=== PATIENT | female | born 1965 | race Caucasian/White ===

== ENCOUNTER → 2016-11-17 | Outpatient (CLI) | payer BC ==
--- NOTE | 2016-11-18 12:49 | MAMMOGRAPHY REPORT ---
BILATERAL DIGITAL SCREENING MAMMOGRAM TOMOSYNTHESIS WITH CAD: 11/17/2016 CLINICAL HISTORY: Routine screening. Patient has no complaints. TECHNIQUE: Breast tomosynthesis in addition to standard 2D mammography was performed. Current study was also evaluated with a Computer Aided Detection (CAD) system. COMPARISON: Comparison is made to exams dated: 10/18/2015 mammogram, 10/09/2014 mammogram, 10/04/2013 m ammogram, 07/22/2012 mammogram, 07/15/2011 mammogram, and 08/01/2009 mammogram - [facility] enter. BREAST COMPOSITION: The tissue of both breasts is heterogeneously dense, which may obscure small ma sses. FINDINGS: Circumscribed masses in the upper inner, upper outer right breast and superior left breast are stable in size compared to last years mammogram. There has been fluctuating nodularity compare d to more remote mammograms, most likely representing fluctuating cysts. No suspicious spiculated o r irregular mass, architectural distortion or cluster of suspicious microcalcifications is seen. IMPRESSION: ACR BI-RADS CATEGORY 1: NEGATIVE There is no mammographic evidence of malignancy. A 1 year screening mammogram is recommended. The p atient will receive written notification of the results. Approximately 10% of breast cancers are not detected with mammography. A negative mammographic repor t should not delay biopsy if a clinically suggestive mass is present. Rebekah Covarrubias M.D. ay/:11/17/2016 21:31:37 Credentialing Specialist: Sandy Sagastume RT(R)(M), [facility] letter sent: Normal 1/2 BI-RADS Code: ACR BI-RADS Category 1: Negative
== END | disposition home or self-care (01) ==
LOC: C.MAMM 11:04
PROVIDERS: ATTEND Obstetrics & Gynecology
DX: Z12.31 Encounter for screening mammogram for malignant neoplasm of breast (principal)

== ENCOUNTER → 2017-05-28 | Outpatient (CLI) | payer BC ==
--- NOTE | 2017-05-29 15:38 | MAMMOGRAPHY REPORT ---
UNILATERAL RIGHT DIGITAL DIAGNOSTIC MAMMOGRAM TOMOSYNTHESIS WITH CAD AND TARGETED RIGHT ULTRASOUND: 1 07/28/2016 CLINICAL HISTORY: The patient reports right breast tenderness for approximately one month, with a few lumps noted in the region of tenderness during a self-breast exam. The patient has a history of a p rior benign right breast excision, and she describes a pulling sensation in the region of her scar as well as a possible lump. TECHNIQUE: Breast tomosynthesis in addition to standard 2D mammography was performed. Current study was also evaluated with a Computer Aided Detection (CAD) system. Right CC and MLO 2-D and tomosynthe sis images were obtained. COMPARISON: Comparison is made to exams dated: 11/17/2016 mammogram, 10/18/2015 mammogram, 10/09/2014 ron mogram, 10/04/2013 mammogram, 07/22/2012 mammogram, and 07/15/2011 mammogram - [facility]. BREAST COMPOSITION: The tissue of the right breast is heterogeneously dense, which may obscure small masses. FINDINGS: Multiple triangle markers cindy the site of palpable lumps in the right superior breast. T here are no suspicious masses, calcifications, or areas of architectural distortion noted in the righ t breast. There has been no significant interval change mammographic the compared to prior exams. A linear scar marker denotes a scar on the right upper outer breast. A circumscribed 11 mm benign-verona earing mass in the right upper inner quadrant is stable compared to multiple prior exams including e 2013 and 2009 exams. Targeted ultrasound was performed of the areas of the palpable lumps pointed out by the patient, in t he right breast at 1:00 approximately 3-4 cm from the nipple. In the right breast at 1:00, 4 cm from the nipple, there is an oval circumscribed hypoechoic solid appearing parallel mass which measures 1 0 x 10 x 4 mm. This corresponds with a circumscribed mammographic mass which has been stable compare d to multiple prior exams, and is therefore likely benign and probably represents a fibroadenoma. Targeted ultrasound was performed of the site of another palpable lump in the right breast at 12:00, approximately 3-4 cm from the nipple. In the right breast at 12:00, approximately 3 cm from the nipp le, there is a small oval circumscribed hypoechoic benign-appearing 3 x 2 mm mass which is likely inc identally noted and likely does not correlate with the palpable finding. Targeted ultrasound was per formed of the site of another palpable lump adjacent to the patient's surgical scar in the right titus st at 10:00 approximately 4 cm from the nipple. In this region there is an oval circumscribed hypoec hoic cystic-appearing 6 x 6 mm mass, which is probably benign and likely represents a cyst and is fel t to be incidentally noted and likely does not correspond with the palpable finding. Targeted ultras ound was performed of the site of another palpable lump in the right breast at 11:00 approximately 6 cm from the nipple. No suspicious masses or other suspicious sonographic abnormalities are noted in these regions. IMPRESSION: ACR-BI-RADS CATEGORY 3: PROBABLY BENIGN, TARGETED ULTRASOUND ACR-BI-RADS CATEGORY 3: PRO BABLY BENIGN Three circumscribed benign-appearing masses in the right breast at 1:00, 12:00, and 10:00 on ultras[address] nd, which are in the region of palpable lumps pointed out by the patient. The right 1:00 breast mass is stable mammographically compared to multiple prior exams and is probably benign and likely repres ents a fibroadenoma. The right 12 and 10:00 masses are felt to be incidentally noted and likely do n ot correspond with the palpable findings, and are probably benign. Recommend bilateral diagnostic to mosynthesis mammograms and targeted ultrasound in 6 months, to reevaluate the right breast masses and for routine mammography of the left breast. Also recommend clinical follow-up for right breast pain /lumps. The patient has been verbally notified of the results. Approximately 10% of breast cancers are not detected with mammography. A negative mammographic report should not delay biopsy if a clinically suggestive mass is present. Elida Hutchinson M.D. ah/:05/28/2017 15:40:46 Risk Compliance Analyst: Sandy RABAGO(Diana)(M), [facility] letter sent: Follow Up Recommended 3 BI-RADS Code: ACR-BI-RADS Category 3: Probably Benign Ultrasound BI-RADS: ACR-BI-RADS Category 3: Pr obably Benign
== END | disposition home or self-care (01) ==
LOC: C.MAMM 11:31
PROVIDERS: ATTEND Physician Assistant
DX: N63.10 Unspecified lump in the right breast, unspecified quadrant (principal)

== ENCOUNTER 2020-07-31 21:26 | Inpatient (IN) ==
[2020-07-31] MEDS ORDERED: ACETAMINOPHEN 1,000 MG/100 ML VIAL IV STA (21:55)
[2020-07-31] MEDS ORDERED: SODIUM CHLORIDE 0.9% 1000ML 1,000 ML IV ONE (21:55)
[2020-07-31] MEDS ORDERED: ONDANSETRON INJ 2 MG/ML 2 ML VIAL IV STA (21:55)
[2020-07-31] MEDS ORDERED: fentaNYL citrate 100 MCG/2 ML VIAL IV STA (21:55)
[2020-07-31 22:07] LABS: Appearance Urine Clear (Clear); Bacteria Urine Automated Negative (Negative); Bilirubin Urine Negative (Negative); Blood Urine 3+ (Negative); Color Urine Yellow; Glucose Urine UA Negative (Negative); Ketones Urine Negative (Negative); Leukocyte Esterase Urine Trace (Negative); Nitrite Urine Negative (Negative); Protein Urine Trace (Negative); RBC Urine Automated >30 /hpf (0-4); Specific Gravity Urine 1.017 (1.000-1.030); Urobilinogen Urine Negative (Negative)
--- NOTE | 2020-07-31 22:11 | Emergency Department Note ---
History of Present Illness General Chief complaint: Abdominal Pain Stated complaint: LEFT SIDE ABD PAIN & BACK PAIN Time Seen by Provider: 07/31/20 21:36 Source: patient Mode of arrival: ambulatory Limitations: no limitations History of Present Illness Provider complaint: Back pain, left flank pain Onset (ago): day(s) 5 Location: back and abdomen Radiation: abdomen Severity: moderate Pain Consistency: + constant and + colicky Maximum Pain Intensity: 7 Current Pain Intensity: 7 Quality: + aching Relieved By: + none Exacerbated By: + movement Associated symptoms: + loss of appetite and + nausea/vomiting; no chest pain, no shortness of breath and no syncope Treatments prior to arrival: none This is a 55-year-old female who presents the emergency department complaining of persistent low back pain and left flank pain. Patient states she began having deep aching and cramping in her back bilaterally last . States at that time she was taking [id number] meds. States it feels better standing instead of laying. States that time the pain seems worse and when it becomes severe she gets nauseated however she has not been vomiting. Patient denies accompanying fevers or chills. Patient denies any recent trauma or change in activity, no history of back surgeries or procedures. Patient does have a history of diverticulitis and is uncertain if her symptoms are related to that. No recent change in her bowel movements. Patient states over the last several days the pain has also felt to be wrapping around her left side and to her left lower abdomen. Patient denies any history of kidney stones in her or family members. Patient states she did have an episode last week where she thought she may have seen blood in her urine but due to finding a new lump in her vaginal region she went and saw her CUSTOMER RESOURCE SPECIALIST. She states she was started on antibiotics for an infected hair follicle and possible concurrent UTI. Patient denies any other symptoms and states she never had anything that felt like her prior urinary tract infections. Pt seen during a time of high acuity and national emergency pandemic while wearing PPE. Home Medications Medication Instructions Recorded Confirmed Type buspirone 10 mg PO QAM 02/17/20 07/31/20 History cholecalciferol (vitamin D3) 1,000 unit PO DAILY 02/17/20 07/31/20 History [Vitamin D3] multivitamin 1 tab PO DAILY 02/17/20 07/31/20 History albuterol sulfate 2 puff INHALATION QID PRN 07/31/20 07/31/20 History bupropion HCl 150 mg PO Q24H 07/31/20 07/31/20 History cefdinir 300 mg PO BID 10 Days #20 cap 08/01/20 Rx tamsulosin 0.4 mg PO QAM 21 Days #21 cap 08/01/20 Rx Allergies Allergy/AdvReac Type Severity Reaction Status Date / Time Penicillins Allergy Unknown Hives Verified 07/31/20 22:45 Sulfa (Sulfonamide Allergy Unknown Hives Verified 07/31/20 22:45 Antibiotics) Past Med/Surg History Medical History (Updated 08/02/20 @ 00:05 by Dc Bailey) Asthma Back pain Depression Encounter for routine gynecological examination Gastric reflux Hematuria Left flank pain Lichen sclerosus et atrophicus Biopsy in 2011 proven Menopausal vaginal dryness Multiple pulmonary nodules Solitary thyroid nodule Surgical History S/P breast lumpectomy S/P surgery on nasal septum deviation repair S/P thyroid surgery excision of nodule Family History Family/Other Diabetes Irregular heart rhythm Mother , in 50's Ovarian cancer dx in early 30's with ovarian cancer CVD (cardiovascular disease) Denies family history of Breast cancer Colorectal cancer Malignant neoplasm of uterus Social History Smoking Status: Never smoker Age Started Using Tobacco: 19; Age Quit Using Tobacco: 21; Hx Alcohol Use: No Hx Substance Use: No Preferred Language: Irish Communication Ability: Effective Dock Pumper Required: No Beliefs That Will Affect Care: None marital status: Current Living Situation: Spouse Feels Safe at Home: Yes Physical Activity Frequency Comment: regularly Assistive Devices: None Review of Systems See HPI for pertinent positives & negatives. and A total of 10 systems reviewed and were otherwise negative Physical Exam Vital Signs Vital Signs - 24 hr 07/31/20 21:27 07/31/20 22:10 07/31/20 22:38 Temperature 36.5 C Temperature Source Temporal Artery Scan Pulse Rate 74 Pulse Rate [Bilateral Apical] 62 82 Respiratory Rate 18 18 20 Respiratory Effort / Characteristics Non-Labored Spontaneous Respiratory Depth Normal Respiratory Pattern Regular Blood Pressure 147/78 H Blood Pressure [Left Arm] 133/80 117/67 Blood Pressure Mean 101 Blood Pressure Mean [Left Arm] 97 83 Blood Pressure Position Sitting Pulse Oximetry 100 100 100 Oxygen Delivery Method Room Air Room Air Room Air Sepsis Recent Fever Within 48 Hours No Sepsis New/Unexplained Change in Mental Status No Sepsis Action Taken by Nursing No Action Required 07/31/20 23:10 07/31/20 23:41 Temperature Temperature Source Pulse Rate Pulse Rate [Bilateral Apical] 81 93 H Respiratory Rate 20 20 Respiratory Effort / Characteristics Respiratory Depth Respiratory Pattern Blood Pressure Blood Pressure [Left Arm] 121/73 114/70 Blood Pressure Mean Blood Pressure Mean [Left Arm] 89 84 Blood Pressure Position Pulse Oximetry 99 98 Oxygen Delivery Method Room Air Room Air Sepsis Recent Fever Within 48 Hours Sepsis New/Unexplained Change in Mental Status Sepsis Action Taken by Nursing GENERAL: alert, uncomfortable appearing, well nourished, no distress, non-toxic EYE EXAM: normal conjunctiva, PERRL and EOM's grossly intact OROPHARYNX: no exudate, no erythema, lips, buccal mucosa, and tongue normal and mucous membranes are moist NECK: supple, no nuchal rigidity, no adenopathy, non-tender LUNGS: Clear to auscultation. Normal chest wall mechanics, no w/r/r HEART: no murmurs, S1 normal and S2 normal ABDOMEN: abdomen soft, non-tender, normo-active bowel sounds, no masses, no rebound or guarding. BACK: Back is symmetrical on inspection and there is no deformity, no midline tenderness, no CVA tenderness. Discomfort with palpation along the left flank. SKIN: no rashes and no bruising UPPER EXTREMITIES: upper extremities are grossly normal. FROM, nml pulses b/l. LOWER EXTREMITIES: No pitting edema. FROM, nml pulses b/l. NEURO EXAM: Normal sensorium, cranial nerves II-XII grossly intact, normal speech, no gross weakness of arms, no gross weakness of legs. Gross sensation intact. Course Course 230: Pt updated on results. Pain returning. 233: Discussed with Dr. Ley. 2345: Updated patient at bedside. Pt still having pain. Administered Medications Discontinued Medications Diatrizoate Meglumine (Diatrizoate Meglumine 30% 100ml Vial) 1 ml INSTIL ONCE ONE Stop: 08/01/20 11:42 Last Admin: 08/01/20 11:48 Dose: 5 ml Documented by: [id number] Fentanyl Citrate (Fentanyl Citrate 100 Mcg/2 Ml Vial) 50 mcg IV NOW STA Stop: 07/31/20 21:56 Last Admin: 07/31/20 22:06 Dose: 50 mcg Documented by: [id number] Fentanyl Citrate (Fentanyl Citrate 100 Mcg/2 Ml Vial) 50 mcg IV Q15M PRN PRN Reason: Pain Stop: 08/14/20 23:21 Last Admin: 07/31/20 23:39 Dose: 50 mcg Documented by: [id number] Sodium Chloride (Nss 1000ml) 1,000 mls @ 999 mls/hr IV .Q1H1M ONE Stop: 07/31/20 22:55 Last Infusion: 07/31/20 23:31 Dose: 0 mls/hr Documented by: [id number] Admin: 07/31/20 22:06 Dose: 999 mls/hr Documented by: [id number] Acetaminophen (Ofirmev) 1,000 mg in 100 mls @ 400 mls/hr IV NOW STA Stop: 07/31/20 22:09 Last Infusion: 07/31/20 22:27 Dose: 0 mls/hr Documented by: [id number] Admin: 07/31/20 22:06 Dose: 400 mls/hr Documented by: [id number] Ceftriaxone Sodium 1,000 mg/ (Dextrose) 50 mls @ 100 mls/hr IV Q24H [facility]; Protocol Stop: 08/06/20 02:59 Last Infusion: 08/01/20 03:51 Dose: 0 mls/hr Documented by: [id number] Admin: 08/01/20 03:21 Dose: 100 mls/hr Documented by: [id number] Sodium Chloride (Nss 1000ml) 1,000 mls @ 125 mls/hr IV .Q8H [facility] Stop: 08/01/20 10:44 Last Infusion: 08/01/20 13:08 Dose: 0 mls/hr Documented by: [id number] Infusion: 08/01/20 09:40 Dose: 0 mls/hr Documented by: [id number] Admin: 08/01/20 03:20 Dose: 125 mls/hr Documented by: [id number] Ketorolac Tromethamine (Ketorolac Tromethamine 15 Mg/Ml Vial) 10 mg IV NOW ONE Stop: 07/31/20 23:57 Last Admin: 08/01/20 00:01 Dose: 10 mg Documented by: [id number] Ondansetron HCl (Ondansetron Inj 2 Mg/Ml 2 Ml Vial) 4 mg IV NOW STA Stop: 07/31/20 21:56 Last Admin: 07/31/20 22:06 Dose: 4 mg Documented by: [id number] Tamsulosin HCl (Tamsulosin Hcl 0.4 Mg Cap) [facility] [place] [place] Stop: 08/31/20 08:59 Last Admin: 08/01/20 10:04 Dose: 0.4 mg Documented by: [id number] Medical Decision Making Differential Diagnosis Differential diagnosis: Etiologies such as shingles, pyelonephritis/UTI, renal colic, appendicitis, diverticulitis, mesenteric ischemia, torsion, aortic pathology, infections, inflammatory bowel disease, bowel obstruction, PUD, biliary pathology, as well as others were entertained. Medical Records Attestation: I reviewed the patient's medical records. Home Medications Current Medication List: was personally reviewed by me Laboratory Data Attestation: I reviewed the patient's lab results. Result diagrams: 07/31/20 21:40 07/31/20 21:40 Lab Results 07/31/20 07/31/20 07/31/20 Range/Units 21:40 21:40 21:40 WBC 7.65 (4.8-10.8) K/uL RBC 4.51 (4.2-5.4) M/uL Hgb 13.9 (12.0-16.0) g/dL Hct 40.2 (37-47) % MCV 89.1 (80-100) fL MCH 30.8 (25-34) pg MCHC 34.6 (32-36) g/dL RDW Std Deviation 41.2 (36.4-46.3) fL RDW Coeff of [place] 12.7 (11.5-14.5) % Plt Count 238 (130-400) K/uL MPV 10.2 (7.4-10.4) fL Immature Gran % (Auto) 0.1 % Neut % (Auto) 58.3 % Lymph % (Auto) 29.9 % [place] % (Auto) 9.8 % Eos % (Auto) 1.6 % Baso % (Auto) 0.3 % Neut # (Auto) 4.46 (1.4-6.5) K/uL Lymph # (Auto) 2.29 (1.2-3.4) K/uL [place] # (Auto) 0.75 H (0.11-0.59) K/uL Eos # (Auto) 0.12 (0-0.5) K/uL Baso # (Auto) 0.02 (0-0.2) K/uL Immature Gran # (Auto) 0.01 (0.00-0.02) K/uL Sodium 142 (136-145) mmol/L Potassium 3.8 (3.5-5.1) mmol/L Chloride 107 (98-107) mmol/L Carbon Dioxide 31 (21-32) mmol/L Anion Gap 3.0 (3-11) BUN 16 (7-18) mg/dl Creatinine 0.98 (0.6-1.2) mg/dl Est Cr Clr Drug Dosing 71.0 ml/min Est GFR ( Amer) 75.8 Est GFR (Non-Af Amer) 65.4 BUN/Creatinine Ratio 16.5 (10-20) Glucose 108 H (70-99) mg/dl Calcium 8.9 (8.5-10.1) mg/dl Magnesium 1.9 (1.8-2.4) mg/dl Total Bilirubin 0.4 (0.2-1) mg/dl AST 16 (15-37) U/L ALT 22 (12-78) U/L Alkaline Phosphatase 68 (45-117) U/L Troponin I < 0.015 (0-0.045) ng/ml Total Protein 6.9 (6.4-8.2) gm/dl Albumin 3.7 (3.4-5.0) gm/dl Globulin 3.2 (2.5-4.0) gm/dl Albumin/Globulin Ratio 1.2 (0.9-2) Lipase 177 (73-393) U/L Urine Color Yellow Urine Appearance Clear (Clear) Urine pH 7.0 (4.5-7.5) Ur Specific [place] 1.017 (1.000-1.030) Urine Protein Trace H (Negative) Urine Glucose (UA) Negative (Negative) Urine Ketones Negative (Negative) Urine Blood 3+ H (Negative) Urine Nitrite Negative (Negative) Urine Bilirubin Negative (Negative) Urine Urobilinogen Negative (Negative) Ur Leukocyte Esterase Trace H (Negative) Urine WBC (Auto) 5-10 H (0-5) /hpf Urine RBC (Auto) >30 H (0-4) /hpf U Hyaline Cast (Auto) 1-5 (0-5) /lpf U Epithel Cells (Auto) 5-10 H (0-5) /lpf Urine Bacteria (Auto) Negative (Negative) COVID-19 Eval Order SARS-CoV-2, RNA, NAAT (NEGATIVE) 08/01/20 08/01/20 Range/Units 01:03 01:03 WBC (4.8-10.8) K/uL RBC (4.2-5.4) M/uL Hgb (12.0-16.0) g/dL Hct (37-47) % MCV (80-100) fL MCH (25-34) pg MCHC (32-36) g/dL RDW Std Deviation (36.4-46.3) fL RDW Coeff of [place] (11.5-14.5) % Plt Count (130-400) K/uL MPV (7.4-10.4) fL Immature Gran % (Auto) % Neut % (Auto) % Lymph % (Auto) % [place] % (Auto) % Eos % (Auto) % Baso % (Auto) % Neut # (Auto) (1.4-6.5) K/uL Lymph # (Auto) (1.2-3.4) K/uL [place] # (Auto) (0.11-0.59) K/uL Eos # (Auto) (0-0.5) K/uL Baso # (Auto) (0-0.2) K/uL Immature Gran # (Auto) (0.00-0.02) K/uL Sodium (136-145) mmol/L Potassium (3.5-5.1) mmol/L Chloride (98-107) mmol/L Carbon Dioxide (21-32) mmol/L Anion Gap (3-11) BUN (7-18) mg/dl Creatinine (0.6-1.2) mg/dl Est Cr Clr Drug Dosing ml/min Est GFR ( Amer) Est GFR (Non-Af Amer) BUN/Creatinine Ratio (10-20) Glucose (70-99) mg/dl Calcium (8.5-10.1) mg/dl Magnesium (1.8-2.4) mg/dl Total Bilirubin (0.2-1) mg/dl AST (15-37) U/L ALT (12-78) U/L Alkaline Phosphatase (45-117) U/L Troponin I (0-0.045) ng/ml Total Protein (6.4-8.2) gm/dl Albumin (3.4-5.0) gm/dl Globulin (2.5-4.0) gm/dl Albumin/Globulin Ratio (0.9-2) Lipase (73-393) U/L Urine Color Urine Appearance (Clear) Urine pH (4.5-7.5) Ur Specific [place] (1.000-1.030) Urine Protein (Negative) Urine Glucose (UA) (Negative) Urine Ketones (Negative) Urine Blood (Negative) Urine Nitrite (Negative) Urine Bilirubin (Negative) Urine Urobilinogen (Negative) Ur Leukocyte Esterase (Negative) Urine WBC (Auto) (0-5) /hpf Urine RBC (Auto) (0-4) /hpf U Hyaline Cast (Auto) (0-5) /lpf U Epithel Cells (Auto) (0-5) /lpf Urine Bacteria (Auto) (Negative) COVID-19 Eval Order Covid19 [facility] SARS-CoV-2, RNA, NAAT NEGATIVE (NEGATIVE) Imaging Data Radiologist's Impression: CT abdomen and pelvis without contrast: 5 x 9 mm stone in the left distal ureter with moderate obstructive changes. Bilateral nephrolithiasis. Colonic diverticula without diverticulitis. Radiologist: Jovan Wilkinson M.D. ECG Data Attestation: I personally reviewed and interpreted this ECG as follows: Indication: + abdominal pain Rate (beats per minute): 77 Rhythm: + normal sinus ECG Intervals/blocks: + Normal QRS and + Normal QT ECG [place]: + Normal ECG ST segments: + Normal ST segments MDM Narrative Pt presents with nearly 1 week of back/flank pain. Labs reassuring, however CT with large stone in left ureter. Due to persistent pain and concern for ability to secure timely followup, discussed options for disposition. I did discuss the case with urology given size of stone and need for close f/u. Case discussed with hospitalist due to persistent pain. Pt afebrile, normal renal function. P t aware of all results and in agreement with the plan. An order was placed for continuous cardiac monitoring. The monitor shows a rate of _72__ with _normal sinus rhythm. Impression & Plan Left flank pain, Back pain, Ureterolithiasis, Hematuria Discharge Plan Visit Data Chief Complaint: Abdominal Pain Stated Complaint: LEFT SIDE ABD PAIN & BACK PAIN ED Provider: Kellie Smith Discharge Problem: Left flank pain, Back pain, Ureterolithiasis, Hematuria Patient Disposition: Admitted As Inpatient Discharge Instructions Interventions: ED Discharge Assessment Last Done: 08/01/20 02:09
[2020-07-31 22:14] LABS: Basophils # (auto) 0.02 K/uL (0-0.2); Basophils % (auto) 0.3 %; Eosinophils # (auto) 0.12 K/uL (0-0.5); Eosinophils % (auto) 1.6 %; Hematocrit (blood only) 40.2 % (37-47); Hemoglobin 13.9 g/dL (12.0-16.0); Immature Granulocytes # (auto) 0.01 K/uL (0.00-0.02); Immature Granulocytes % (auto) 0.1 %; Lymphocytes # (auto) 2.29 K/uL (1.2-3.4); Lymphocytes % (auto) 29.9 %; Mean Corpuscular Hemoglobin 30.8 pg (25-34); Mean Corpuscular Hgb Conc 34.6 g/dL (32-36); Mean Corpuscular Volume 89.1 fL (80-100); Mean Platelet Volume 10.2 fL (7.4-10.4); Monocytes # (auto) 0.75 K/uL (0.11-0.59); Monocytes % (auto) 9.8 %; Neutrophils # (auto) 4.46 K/uL (1.4-6.5); Neutrophils % (auto) 58.3 %; Platelet Count 238 K/uL (130-400); RDW Coefficient of Variation 12.7 % (11.5-14.5); RDW Standard Deviation 41.2 fL (36.4-46.3); Red Blood Count 4.51 M/uL (4.2-5.4); White Blood Count 7.65 K/uL (4.8-10.8)
[2020-07-31 22:22] LABS: Alanine Aminotransferase 22 U/L (12-78); Albumin Level 3.7 gm/dl (3.4-5.0); Aspartate Aminotransferase 16 U/L (15-37); BUN Creatinine Ratio 16.5 (10-20); Blood Urea Nitrogen 16 mg/dl (7-18); Calcium 8.9 mg/dl (8.5-10.1); Carbon Dioxide 31 mmol/L (21-32); Chloride 107 mmol/L (98-107); Est GFR (African American) 75.8; Est GFR (Non-African American) 65.4; Glucose 108 mg/dl (70-99); Lipase 177 U/L (73-393); Magnesium 1.9 mg/dl (1.8-2.4); Potassium 3.8 mmol/L (3.5-5.1); Sodium 142 mmol/L (136-145)
[2020-07-31 22:26] LABS: Albumin Globulin Ratio 1.2 (0.9-2); Alkaline Phosphatase 68 U/L (45-117); Bilirubin,Total 0.4 mg/dl (0.2-1); Globulin 3.2 gm/dl (2.5-4.0); Total Protein 6.9 gm/dl (6.4-8.2); Troponin I < 0.015 ng/ml (0-0.045)
[2020-07-31] MEDS ORDERED: fentaNYL citrate 100 MCG/2 ML VIAL IV PRN (23:22)
[2020-07-31] MEDS ORDERED: KETOROLAC TROMETHAMINE 15 MG/ML VIAL IV ONE (23:56)
--- NOTE | 2020-08-01 02:23 | History & Physical Report ---
Date of Service August 01, 2020 Assessment & Plan (1) Ureterolithiasis: Mrs. Ahuja is a 55 yo woman who presented to the ED for evaluation of left flank pain with associated nausea and vomiting, found to have a 5 x9 L sided stone in the distal ureter with moderate obstructive changes. - Urology consult placed - NPO after midnight in anticipation of procedure - continue IVF - pain control with Tylenol IV (for mild-moderate) and Morphine IV (for severe) - zofran prn for nausea - Rocephin, 1gram, IV ordered given obstructive ureterolithiasis (concern for possible developing pyelo superior to stone) (2) Hematuria: - UA 3+ for blood - likely secondary to ureter trauma induced by large kidney stone - management as above (3) Left flank pain: - suspect secondary to L obstructive ureterolithiasis - pain management as above (4) Depression: - continue home Buspar and Wellbutrin Dispo: Med/surg DVT ppx: SCDs Diet: NPO in anticipation of procedure Code: Full, I discussed with patient History of Present Illness Primary Care Provider: Giuliana Costa MD Mrs. Ahuja is a 55 yo woman who presented to the ED for evaluation of L flank pain of 5 days duration. She endorsed associated nausea and vomiting. No fevers or chills. She denied any preceding injury or trauma to the abdomen/back. Of note, patient was seen by Natalie Quarles EDI COORDINATOR on 07/27/19 at which time she was started on a 7 day course of Keflex for an infected sebaceous cyst. She has been taking this antibiotic as directed up to admission. No personal or family history of kidney stones. In ED: patient febrile. WBC normal. Cr 0.98. UA trace LE, WBC 5-10, > 30 RBCs, - nitrite, 3+ blood, - bacteria. A/P CT scan showing 5 x 9 moderately obstructive stone in L distal ureter. She was given Tylenol IV 1 gram, Toradol IV 10mg, fentnyl IV 50mcg, zofran and 1 liter of normal saline. Allergies Allergy/AdvReac Type Severity Reaction Status Date / Time Penicillins Allergy Unknown Hives Verified 07/31/20 22:45 Sulfa (Sulfonamide Allergy Unknown Hives Verified 07/31/20 22:45 Antibiotics) Home Medications Medication Instructions Recorded Confirmed Type buspirone 10 mg PO QAM 02/17/20 07/31/20 History cholecalciferol (vitamin D3) 1,000 unit PO DAILY 02/17/20 07/31/20 History [Vitamin D3] multivitamin 1 tab PO DAILY 02/17/20 07/31/20 History albuterol sulfate 2 puff INHALATION QID PRN 07/31/20 07/31/20 History bupropion HCl 150 mg PO Q24H 07/31/20 07/31/20 History cefdinir 300 mg PO BID 10 Days #20 cap 08/01/20 Rx tamsulosin 0.4 mg PO QAM 21 Days #21 cap 08/01/20 Rx Past Med/Surg History Medical History (Updated 08/02/20 @ 00:05 by Dc Bailey) Asthma Back pain Depression Encounter for routine gynecological examination Gastric reflux Hematuria Left flank pain Lichen sclerosus et atrophicus Biopsy in 2011 proven Menopausal vaginal dryness Multiple pulmonary nodules Solitary thyroid nodule Surgical History S/P breast lumpectomy S/P surgery on nasal septum deviation repair S/P thyroid surgery excision of nodule Family History Family/Other Diabetes Irregular heart rhythm Mother , in 50's Ovarian cancer dx in early 30's with ovarian cancer CVD (cardiovascular disease) Denies family history of Breast cancer Colorectal cancer Malignant neoplasm of uterus Social History Smoking Status: Never smoker Age Started Using Tobacco: 19; Age Quit Using Tobacco: 21; Hx Alcohol Use: No Hx Substance Use: No Preferred Language: Syriac Communication Ability: Effective Specialties Operator Required: No Beliefs That Will Affect Care: None marital status: Current Living Situation: Spouse Feels Safe at Home: Yes Physical Activity Frequency Comment: regularly Assistive Devices: None Review of Systems Constitutional: no fever and no chills Genitourinary: + flank pain (left) Physical Exam Constitutional: WD/WN, vitals as above cooperative; no acute distress Eyes: + anicteric sclerae ENMT: external ear and nose normal, oropharynx normal Neck: normal visual inspection and trachea midline Respiratory: normal respiratory effort, lungs clear to auscultation Auscultation: no crackles and no wheezes Cardiovascular: RRR, no murmur, no edema Heart Sounds: normal S1 and normal S2 Extremities: no pedal edema Gastrointestinal (Abdomen): normal bowel sounds, soft, nontender, no hepatosplenomegaly + CVA tenderness on L Skin: no rashes, warm and dry Psychiatric: A+Ox3, euthymic affect Results & Data Results & Data ([facility]) Vital Signs (Past 12 Hours) Vital Signs Temp Pulse Pulse Resp BP BP Pulse Ox 08/01/20 02:05 61 20 103/56 L 97 08/01/20 01:05 59 L 20 105/62 97 08/01/20 00:25 64 20 119/66 97 07/31/20 23:41 93 H 20 114/70 98 07/31/20 23:10 81 20 121/73 99 07/31/20 22:38 82 20 117/67 100 07/31/20 22:10 62 18 133/80 100 07/31/20 21:27 36.5 C 74 18 147/78 H 100 Supervising Physician Co-Signing Physician Notes Attending addendum: I have physically seen this patient, have supervised the medical residents activities, and agree with the H&P unless as otherwise noted. Assessment and Plan: Distal left ureteral 5 x 9 mm obstructive stone/moderate hydroureteronephrosis- NPO except essential meds Ceftriaxone 1 g IV daily Follow urine culture and sensitivities NSS@100 mils per hour Zofran 4 mg IV every 6 hours as needed Dilaudid 0.2 mg IV every 3 hours as needed severe pain Consult urology Depression- Continue BuSpar and Wellbutrin Remaining orders and notations as noted Resident Activity Tracking Resident Involvement: Resident Care Provided Care Provided: Adult Hospital Medicine (1) Hematuria Hematuria type: other microscopic Qualified Code(s): R31.29 - Other microscopic hematuria
[2020-08-01] MEDS ORDERED: ACETAMINOPHEN 1000 MG/100 ML IV IV PRN (02:31)
[2020-08-01] MEDS ORDERED: ONDANSETRON INJ 2 MG/ML 2 ML VIAL IV PRN ×2 (02:31→10:35)
[2020-08-01] MEDS ORDERED: SODIUM CHLORIDE 0.9% 1000ML 1,000 ML IV SCH (02:45)
[2020-08-01] MEDS ORDERED: cefTRIAXone SODIUM 1,000 MG in DEXTROSE 5% 50 ML IV SCH (03:00)
--- NOTE | 2020-08-01 07:40 | CT Scan Report ---
ABDOMEN AND PELVIS CT WITHOUT CONTRAST CT DOSE: 281.65 mGy.cm HISTORY: Acute bilateral flank pain with hematuria back pain, hematuria TECHNIQUE: Multiaxial CT images of the abdomen and pelvis were performed without contrast. A dose lo wering technique was utilized adhering to the principles of ALARA. COMPARISON STUDY: CT abdomen and pelvis 02/17/2020 FINDINGS: Imaged inferior cardiac chambers are unremarkable. Clear lung bases. There is no pneumatosis or pneum operitoneum. Limited evaluation of the solid abdominal organs without the use of IV contrast. Within the limitations of the study, the spleen, pancreas, adrenal glands, gallbladder and liver appear unre markable. There are at least 6 nonobstructing calculi of the right kidney noted measuring up to 3 mm. There are least 4 nonobstructing calculi noted within the left kidney measuring up to 3 mm. Moderate left-side d hydroureteronephrosis secondary to an obstructing 5 x 5 x 9 mm calculus of the distal left ureter w hich is present approximately 2.5 cm proximal to the ureterovesicular junction. Partially decompresse d urinary bladder with mild wall thickening. Unremarkable uterus and adnexa. Aorta and IVC are unrema rkable. There is no bowel obstruction or bowel wall thickening. Colonic diverticulosis without acute divertic ulitis. There is mild fecal retention. Visualized appendix is unremarkable. Unremarkable soft tissues . No acute fracture. IMPRESSION: 1. Moderate left-sided hydroureteronephrosis secondary to a 5 x 5 x 9 mm calculus of the distal left ureter approximately 2.5 cm proximal to the ureterovesicular junction. 2. Nonobstructing bilateral nephrolithiasis. 3. No bowel obstruction or bowel wall thickening. 4. Colonic diverticulosis. ACT 112: Negative or not required by law. The above report was generated using voice recognition software. It may contain grammatical, syntax o r spelling errors. Electronically signed by: Bernardo Castillo M.D. 08/01/2020 7:39 AM
--- NOTE | 2020-08-01 08:33 | Urology Consultation ---
Date of Consultation August 01, 2020 Assessment & Plan (1) Left ureteral stone: (2) Hydronephrosis, left: (3) Left flank pain: 55yo F admitted with intractable left flank/back pain and nausea secondary to a 9mm obstructing left distal ureteral stone with hydronephrosis. -Plan of care reviewed with Dr. Ley -Keep NPO -Strain all urine -Patient afebrile, white count and creatinine are stable -Discussed options for acute stone management. Discussed ureteroscopy, laser litho/stone extraction, and stent -Discussed outpatient options for conservative measures with max expulsion medical therapy -Discussed outpatient ESWL procedure -Risks/benefits of all procedures discussed -Given her intractable left flank pain, nausea, and hydronephrosis in the context of an obstructing 9mm distal left ureteral stone, will proceed with OR for Cystoscopy, Left retrograde pyelogram and Left stent placement, possible ureteroscopy, laser lithotripsy, stone basketing, possible ureteral dilation depending on findings. Risks and benefits to be reviewed with patient by Dr. Ley. OR notified. Preoperative CXR ordered. EKG in chart. Currently on IV Ceftriaxone. -Patient agreeable to above plan, all questions were answered. Supervising Physician Co-Signing Physician Notes discussed ureteroscopy risks benefits and options with the patient and she agreed to proceed History of Present Illness Reason for Consultation: obstructive kidney stone Attending Physician: Roe Drake DO History of Present Illness The patient is a 55-year-old female who presented to the ER with c/o persistent low back and left flank pain for 5 days. She also reports associated nausea and vomiting and intermittent hematuria. CT abdomen pelvis was remarkable for a 9mm distal left ureteral stone with hydronephrosis. PMHx includes Depression, Asthma No prior hx of kidney stones Family hx of stones - Father Hx of urethral dilation as a child, approx age 7 Chart review: Afebrile Wbc 7.65 Hgb 13.9 Cr 0.98 UA trace LE, WBC 5-10, > 30 RBCs, - nitrite, 3+ blood, - bacteria. Urine culture from 07/27- Low counts probable skin isaiah On IV Ceftriaxone CT A/P IMPRESSION: 1. Moderate left-sided hydroureteronephrosis secondary to a 5 x 5 x 9 mm calculus of the distal left ureter approximately 2.5 cm proximal to the ureterovesicular junction. 2. Nonobstructing bilateral nephrolithiasis. 3. No bowel obstruction or bowel wall thickening. 4. Colonic diverticulosis. Patient examined at bedside this AM. Awake, resting in bed on arrival. She reports an improvement in the left back/flank pain with IV pain medication. Denies fevers or chills. Denies nausea or vomiting. Denies hematuria/dysuria. No urgency or frequency. Feels she is emptying her bladder. Has been NPO. Of note, Patient states she first noticed left back/flank pain and hematuria 1 week ago. She reports seeing blood in her urine and also finding a new lump in her vaginal region. She was seen by [facility] on 07/27/19 at which time she was started on a 7 day course of Keflex for an infected sebaceous cyst and possible concurrent UTI. Allergies Allergy/AdvReac Type Severity Reaction Status Date / Time Penicillins Allergy Unknown Hives Verified 07/31/20 22:45 Sulfa (Sulfonamide Allergy Unknown Hives Verified 07/31/20 22:45 Antibiotics) Home Medications Medication Instructions Recorded Confirmed Type buspirone 10 mg PO QAM 02/17/20 07/31/20 History cholecalciferol (vitamin D3) 1,000 unit PO DAILY 02/17/20 07/31/20 History [Vitamin D3] multivitamin 1 tab PO DAILY 02/17/20 07/31/20 History cephalexin 250 mg capsule 250 mg PO QID 7 Days #28 cap 07/27/20 07/31/20 Rx albuterol sulfate 2 puff INHALATION QID PRN 07/31/20 07/31/20 History bupropion HCl 150 mg PO Q24H 07/31/20 07/31/20 History Patient History Medical History Asthma Depression Encounter for routine gynecological examination Gastric reflux Lichen sclerosus et atrophicus Biopsy in 2012 proven Menopausal vaginal dryness Multiple pulmonary nodules Solitary thyroid nodule Surgical History S/P breast lumpectomy S/P surgery on nasal septum deviation repair S/P thyroid surgery excision of nodule Family History Family/Other Diabetes Irregular heart rhythm Mother , in 50's Ovarian cancer dx in early 30's with ovarian cancer CVD (cardiovascular disease) Denies family history of Breast cancer Colorectal cancer Malignant neoplasm of uterus Social History Smoking Status: Never smoker Age Started Using Tobacco: 19; Age Quit Using Tobacco: 21; Hx Alcohol Use: No Hx Substance Use: No Preferred Language: Maltese Communication Ability: Effective Small Order Cutter Required: No Beliefs That Will Affect Care: None marital status: Current Living Situation: Spouse Feels Safe at Home: Yes Physical Activity Frequency Comment: regularly Assistive Devices: None Review of Systems Constitutional: as per Subjective / HPI Respiratory: no cough and no dyspnea Cardiovascular: no chest pain and no lightheadedness Gastrointestinal: as per Subjective / HPI Genitourinary: as per Subjective / HPI Musculoskeletal: as per Subjective / HPI Integumentary: no rash Neurologic: no unsteadiness and no dizziness Psychiatric: as per Subjective / HPI Hematologic / Lymphatic: no problem reported Physical Exam Constitutional: well developed and well nourished; no acute distress Respiratory: normal respiratory effort and able to speak in complete sentences Cardiovascular: Extremities: no calf tenderness and no pedal edema Gastrointestinal (Abdomen): Percussion/Palpation: + abdomen tender (mild left flank tenderness to palpation) and abdomen soft; no guarding Musculoskeletal: Head/Neck/Chest: normocephalic Skin: Warm and dry, No visible rashes or lesions Neurologic: moves all extremities and awake; not confused Psychiatric: Orientation: alert, oriented x 3 and cooperative Results & Data ([facility]) Vital Signs (Past 12 Hours) Vital Signs Temp Pulse Pulse Resp BP BP Pulse Ox 08/01/20 07:53 36.5 C 60 16 118/71 98 08/01/20 03:21 36.5 C 79 20 120/74 96 08/01/20 02:05 61 20 103/56 L 97 08/01/20 01:05 59 L 20 105/62 97 08/01/20 00:25 64 20 119/66 97 07/31/20 23:41 93 H 20 114/70 98 07/31/20 23:10 81 20 121/73 99 07/31/20 22:38 82 20 117/67 100 07/31/20 22:10 62 18 133/80 100 07/31/20 21:27 36.5 C 74 18 147/78 H 100 PG Care Time/CCT Total # of Minutes Spent Total Time Spent with Patient: Total time spent is greater than 50% in coordination of care (as documented) at patient's floor/unit and/or counseling patient: Coding Level of Care Code 19811 Inpt Consult Level 4 Diagnoses Left ureteral stone N20.1 Hydronephrosis, left N13.30 Left flank pain R10.9
[2020-08-01] MEDS ORDERED: busPIRone 5 MG TAB PO SCH (09:00)
[2020-08-01] MEDS ORDERED: TAMSULOSIN HCL 0.4 MG CAP PO SCH (09:00)
[2020-08-01] MEDS ORDERED: buPROPion XL 150 MG TABCR PO SCH (09:00)
--- NOTE | 2020-08-01 09:53 | XRay Report ---
XR chest 2V PA/lateral HISTORY: 55 years-old Female pre op preoperative exam. No acute chest complaints COMPARISON: Chest CT 01/20/2000 and TECHNIQUE: PA and lateral views of the chest FINDINGS: Cardiomediastinal and hilar silhouettes are within normal limits. There is no pneumothorax,, large pl eural effusion, overt pulmonary edema or airspace consolidation typical for pneumonia. Mild hyperinfl ation. There is mild blunting of the bilateral costophrenic angles which appears new from comparison. Bones appear grossly intact. IMPRESSION: 1. Mild blunting of the costophrenic angles may be secondary to atelectasis versus trace effusions. 2. No airspace consolidation. ACT 112: Negative or not required by law. The above report was generated using voice recognition software. It may contain grammatical, syntax o r spelling errors. Electronically signed by: Bernardo Castillo M.D. 08/01/2020 9:52 AM
--- NOTE | 2020-08-01 10:33 | Anesthesiology Consultation ---
Date of Service August 01, 2020 Assessment & Plan Chart Review Chart Review: Acceptable Risk for Surgery Consults Requested none History Surgery Operation Date: 08/01/20 10:10 Proposed Procedures p Cystoscopy Left Ureteral Stent Placement Possible Ureteroscopy Laser Lithotripsy Stone Extraction - Adrian Ley MD Height/Weight Height: 5 ft 10 in Weight: 70 kg Allergies Allergy/AdvReac Type Severity Reaction Status Date / Time Penicillins Allergy Unknown Hives Verified 07/31/20 22:45 Sulfa (Sulfonamide Allergy Unknown Hives Verified 07/31/20 22:45 Antibiotics) Medications Home Medications Medication Instructions Recorded Confirmed Last Taken buspirone 10 mg PO QAM 02/17/20 07/31/20 Unknown cholecalciferol (vitamin D3) 1,000 unit PO DAILY 02/17/20 07/31/20 Unknown [Vitamin D3] multivitamin 1 tab PO DAILY 02/17/20 07/31/20 Unknown cephalexin 250 mg capsule 250 mg PO QID 7 Days #28 cap 07/27/20 07/31/20 Unknown albuterol sulfate 2 puff INHALATION QID PRN 07/31/20 07/31/20 Unknown bupropion HCl 150 mg PO Q24H 07/31/20 07/31/20 Unknown Active Medications Generic Name Dose Route Start Last Admin Trade Name Freq PRN Reason Stop Dose Admin Ceftriaxone Sodium 1,000 mg/ 50 mls @ 100 mls/hr 08/01/20 03:00 08/01/20 03:51 Dextrose IV 08/06/20 02:59 Infused Q24H SUZAN Infusion Protocol Sodium Chloride 1,000 mls @ 125 mls/hr 08/01/20 02:45 08/01/20 09:40 Nss 1000ml IV 08/01/20 10:44 0 mls/hr .Q8H SUZAN Infusion Tamsulosin HCl 0.4 mg 08/01/20 09:00 08/01/20 10:04 Tamsulosin Hcl 0.4 Mg Cap PO 08/31/20 08:59 0.4 mg QAM SUZAN Administration NPO Date Last Intake of Fluids: 07/31/20 Time Last Intake of Fluids: 18:00 Last Intake of Fluids Comment: sips with meds Date Last Intake of Solids: 07/31/20 Time Last Intake of Solids: 17:00 Past Medical History Medical History Asthma Depression Encounter for routine gynecological examination Gastric reflux Lichen sclerosus et atrophicus Biopsy in 2012 proven Menopausal vaginal dryness Multiple pulmonary nodules Solitary thyroid nodule Past Family History Family History Family/Other Diabetes Irregular heart rhythm Mother , in 50's Ovarian cancer dx in early 30's with ovarian cancer CVD (cardiovascular disease) Denies family history of Breast cancer Colorectal cancer Malignant neoplasm of uterus Past Surgical History Surgical History S/P breast lumpectomy S/P surgery on nasal septum deviation repair S/P thyroid surgery excision of nodule Social History Smoking Status: Never smoker tobacco type: cigarettes Hx Alcohol Use: No Hx Substance Use: No Physical Exam Vital Signs Last Vital Signs Temp 36.7 C 08/01/20 10:25 Pulse 66 08/01/20 10:25 Resp 20 08/01/20 10:25 BP 139/79 08/01/20 10:25 Pulse Ox 20 L 08/01/20 10:25 Testing Laboratory Results 07/31/20 21:40 07/31/20 21:40 Urine Color Yellow 07/31/20 21:40 Urine Appearance Clear (Clear) 07/31/20 21:40 Urine pH 7.0 (4.5-7.5) 07/31/20 21:40 Ur Specific [place] 1.017 (1.000-1.030) 07/31/20 21:40 Urine Protein Trace (Negative) H 07/31/20 21:40 Urine Glucose (UA) Negative (Negative) 07/31/20 21:40 Urine Ketones Negative (Negative) 07/31/20 21:40 Urine Nitrite Negative (Negative) 07/31/20 21:40 Ur Leukocyte Esterase Trace (Negative) H 07/31/20 21:40 Urine WBC (Auto) 5-10 /hpf (0-5) H 07/31/20 21:40 Urine RBC (Auto) >30 /hpf (0-4) H 07/31/20 21:40 U Hyaline Cast (Auto) 1-5 /lpf (0-5) 07/31/20 21:40 U Epithel Cells (Auto) 5-10 /lpf (0-5) H 07/31/20 21:40 Urine Bacteria (Auto) Negative (Negative) 07/31/20 21:40
[2020-08-01] MEDS ORDERED: ATROPINE SULFATE 0.1 MG/ML 10ML SYR IV PRN (10:35)
[2020-08-01] MEDS ORDERED: PROMETHAZINE HCL 12.5 MG in SODIUM CHLORIDE 0.9% 50 ML IV PRN (10:35)
[2020-08-01] MEDS ORDERED: fentaNYL citrate 100 MCG/2 ML VIAL IV PRN (10:35)
[2020-08-01] MEDS ORDERED: METOCLOPRAMIDE HCL INJ 5 MG/ML 2 ML VIAL IV PRN (10:35)
[2020-08-01] MEDS ORDERED: ePHEDrine sulfate 50 MG/ML AMP IV PRN (10:35)
[2020-08-01] MEDS ORDERED: HYDROmorphone INJ 2 MG/ML SYR/VIAL IV PRN (10:35)
[2020-08-01] MEDS ORDERED: ONDANSETRON INJ 2 MG/ML 2 ML VIAL ONE (10:56)
[2020-08-01] MEDS ORDERED: PROPOFOL IV EMULSION 10 MG/ML 20 ML VIAL IV ONE (10:56)
[2020-08-01] MEDS ORDERED: fentaNYL citrate 100 MCG/2 ML VIAL ONE (10:56)
[2020-08-01] MEDS ORDERED: DEXAMETHASONE SOD INJ 4 MG/ML VIAL ONE (10:56)
[2020-08-01] MEDS ORDERED: ePHEDrine sulfate 50 MG/ML SYR ONE (11:30)
[2020-08-01] MEDS ORDERED: DIATRIZOATE MEGLUMINE 30% 100ML VIAL INSTIL ONE (11:41)
--- NOTE | 2020-08-01 12:00 | Post Operative Brief Note ---
PG Immediate Post Op with CF Date of Surgery August 01, 2020 Pre & Post Diagnosis Operation Date: 08/01/20 10:10 Pre-Op Diagnosis: Left Ureteral Stone Post-Op Diagnosis: Left Ureteral Stone I identified the patient and participated in the time-out.: Yes Procedure Operation Date: 08/01/20 10:10 Actual Procedures p Cystoscopy, Left Retrograde Pyelogram, Left Ureteroscopy, Laser Lithotripsy with Stone Extraction, Insertion Left Ureteral Stent, Lancing of Ingrown Labial Hair - Adrian Ley MD Surgeon Adrian Ley MD Filenet Architect none Estimated Blood Loss 10 Findings Consistent with Post-Op Diagnosis Specimens Specimen Description: A. Left Ureteral Stones for chemical Analysis
--- NOTE | 2020-08-01 12:01 | History & Physical Bridge Note ---
Date of Service August 01, 2020 History & Physical Bridge Note I have examined the patient, reviewed the History & Physical and in the interval since the performance of the History & Physical I have noted the following changes of clinical significance: no changes noted
--- NOTE | 2020-08-01 12:15 | Fluoroscopy Report ---
INTRAOPERATIVE RADIOGRAPHS CLINICAL HISTORY: Left-sided retrograde pyelogram with laser lithotripsy and ureteral stent placement . Fluoroscopy time: 19 seconds. FINDINGS: 6 spot fluoroscopic views of the left abdomen are correlated with abdominal CT dated 021. The initial images show a catheter in the left ureter which extends to the left renal pelvis. Co ntrast opacification shows mild left hydroureteronephrosis. The final image shows the proximal end of a left ureteral stent coiled in the renal pelvis. IMPRESSION: Intraoperative images from a left-sided retrograde pyelogram and ureteral stent placement procedure as above. Electronically signed by: Frank Jarrell M.D. 08/01/2020 12:14 PM
--- NOTE | 2020-08-01 12:21 | Anesthesiology Progress Note ---
Date of Service August 01, 2020 Anesthesia Post Procedure Vital Signs Vital Signs: Temp Pulse Pulse Pulse Pulse Resp BP 08/01/20 12:05 64 22 08/01/20 11:58 36.3 C L 79 20 08/01/20 10:25 36.7 C 66 20 08/01/20 07:53 36.5 C 60 16 08/01/20 03:21 36.5 C 79 20 08/01/20 02:05 61 20 08/01/20 01:05 59 L 20 08/01/20 00:25 64 20 07/31/20 23:41 93 H 20 07/31/20 23:10 81 20 07/31/20 22:38 82 20 07/31/20 22:10 62 18 07/31/20 21:27 36.5 C 74 18 147/78 H BP Pulse Ox 08/01/20 12:05 113/67 100 08/01/20 11:58 116/58 L 100 08/01/20 10:25 139/79 20 L 08/01/20 07:53 118/71 98 08/01/20 03:21 120/74 96 08/01/20 02:05 103/56 L 97 08/01/20 01:05 105/62 97 08/01/20 00:25 119/66 97 07/31/20 23:41 114/70 98 07/31/20 23:10 121/73 99 07/31/20 22:38 117/67 100 07/31/20 22:10 133/80 100 07/31/20 21:27 100 Pain Intensity Left Flank: Pain Intensity: 2 Transfer of Care Handoff Completed per policy Notes Mental Status: alert / awake / arousable and participated in evaluation Patient Amnestic to Procedure: Yes Nausea / Vomiting: adequately controlled Pain: adequately controlled Airway Patency, RR, SpO2: stable & adequate BP & HR: stable & adequate Hydration State: stable & adequate Anesthetic Complications: no major complications apparent
--- NOTE | 2020-08-01 12:33 | Anesthesiology Progress Note ---
Date of Service August 01, 2020 Anesthesia Post Procedure Vital Signs Vital Signs: Temp Pulse Pulse Pulse Pulse Resp BP 08/01/20 12:15 63 16 08/01/20 12:05 64 22 08/01/20 11:58 36.3 C L 79 20 08/01/20 10:25 36.7 C 66 20 08/01/20 07:53 36.5 C 60 16 08/01/20 03:21 36.5 C 79 20 08/01/20 02:05 61 20 08/01/20 01:05 59 L 20 08/01/20 00:25 64 20 07/31/20 23:41 93 H 20 07/31/20 23:10 81 20 07/31/20 22:38 82 20 07/31/20 22:10 62 18 07/31/20 21:27 36.5 C 74 18 147/78 H BP Pulse Ox 08/01/20 12:15 115/65 97 08/01/20 12:05 113/67 100 08/01/20 11:58 116/58 L 100 08/01/20 10:25 139/79 20 L 08/01/20 07:53 118/71 98 08/01/20 03:21 120/74 96 08/01/20 02:05 103/56 L 97 08/01/20 01:05 105/62 97 08/01/20 00:25 119/66 97 07/31/20 23:41 114/70 98 07/31/20 23:10 121/73 99 07/31/20 22:38 117/67 100 07/31/20 22:10 133/80 100 07/31/20 21:27 100 Pain Intensity Left Flank: Pain Intensity: 2 Transfer of Care Handoff Completed per policy Notes Mental Status: alert / awake / arousable and participated in evaluation Patient Amnestic to Procedure: Yes Nausea / Vomiting: adequately controlled Pain: adequately controlled Airway Patency, RR, SpO2: stable & adequate BP & HR: stable & adequate Hydration State: stable & adequate Anesthetic Complications: no major complications apparent
[2020-08-01] MEDS ORDERED: ALBUTEROL HFA 8 GM INHALER INH PRN (13:04)
--- NOTE | 2020-08-01 13:08 | Operative Report (OR) ---
DATE OF OPERATION: 08/01/2020 PROCEDURE PERFORMED: Left ureteroscopy, laser lithotripsy, left stent placement, stone removal and blanching of small labial hair follicle, boil. PREOPERATIVE DIAGNOSES: Left ureteral stone and infected hair follicle, right labia. POSTOPERATIVE DIAGNOSES: Left ureteral stone and infected hair follicle, right labia. SURGEON: Adrian Ley MD. ANESTHESIA: General. INDICATIONS: The patient is a 55-year-old female who presented with first a stone; it was a large 5 x 9 mm distal stone with ongoing pain. We discussed her options and she wished to proceed with ureteroscopy. She also had been seeing a doctor and was on antibiotics for an infected hair follicle in her right labia that was being treated with antibiotics only. DESCRIPTION OF THE PROCEDURE: The patient was taken to the cysto suite where she had been given preoperative antibiotics. She was placed in dorsal lithotomy position and prepped and draped in the usual sterile fashion. A 22-Mosotho cystoscope was passed per urethra. A guidewire was passed beyond the stone. Ureteroscope was passed up to the stone after the guidewire was left in place using fluoroscopy and the cystoscope was removed. The stone was fragmented into multiple pieces. Using a 3-prong grasper, all the large pieces were removed. The fluoroscopy did not see any remaining fragments and sent the other fragments for analysis. Then, I placed a 4.8-Mosotho 26 cm stent without difficulty. The position was confirmed under fluoroscopy after I injected some contrast into the proximal kidney to make sure the stent was in the renal pelvis. Her bladder was emptied and then I did with a 22-Mosotho needle raphael the 6-7 mm boil in her left labia and then extracted some purulent fluid from it. It did bleed slightly and then it had stopped as well. We will have her use Sitz baths for this as well as finish her antibiotics. At the end of the procedure, the patient was transferred to the recovery room in stable condition. I attest to the content of the Intraoperative Record and any orders documented therein. Any exceptions are noted below. ALIZA
--- NOTE | 2020-08-01 15:07 | Discharge Summary ---
Date of Service August 01, 2020 Admission HPI Per Admitting Provider Mrs. Ahuja is a 55 yo woman who presented to the ED for evaluation of L flank pain of 5 days duration. She endorsed associated nausea and vomiting. No fevers or chills. She denied any preceding injury or trauma to the abdomen/back. Of note, patient was seen by Natalie Quarles [employer] on 07/27/19 at which time she was started on a 7 day course of Keflex for an infected sebaceous cyst. She has been taking this antibiotic as directed up to admission. No personal or family history of kidney stones. In ED: patient febrile. WBC normal. Cr 0.98. UA trace LE, WBC 5-10, > 30 RBCs, - nitrite, 3+ blood, - bacteria. A/P CT scan showing 5 x 9 moderately obstructive stone in L distal ureter. She was given Tylenol IV 1 gram, Toradol IV 10mg, fentanyl IV 50mcg, zofran and 1 liter of normal saline. Admission Exam Per Admitting Provider Constitutional: WD/WN, vitals as above cooperative; no acute distress Eyes: + anicteric sclerae ENMT: external ear and nose normal, oropharynx normal Neck: normal visual inspection and trachea midline Respiratory: normal respiratory effort, lungs clear to auscultation Auscultation: no crackles and no wheezes Cardiovascular: RRR, no murmur, no edema Heart Sounds: normal S1 and normal S2 Extremities: no pedal edema Gastrointestinal (Abdomen): normal bowel sounds, soft, nontender, no hepatosplenomegaly + CVA tenderness on L Skin: no rashes, warm and dry Psychiatric: A+Ox3, euthymic affect Principal Diagnosis obstructive renal calculus Discharge Exam Constitutional WD/WN, vitals as above Respiratory normal respiratory effort, lungs clear to auscultation Cardiovascular RRR, no murmur, no edema Gastrointestinal (Abdomen) normal bowel sounds, LUQ tenderness to palpation mild Skin no rashes, warm and dry Psychiatric A+Ox3, euthymic affect Discharge Data Allergies Allergy/AdvReac Type Severity Reaction Status Date / Time Penicillins Allergy Unknown Hives Verified 07/31/20 22:45 Sulfa (Sulfonamide Allergy Unknown Hives Verified 07/31/20 22:45 Antibiotics) Consultations 08/01/20 00:37 ED Decision to Admit Stat 01/20/21 02:31 Consult Urology Routine Procedures Performed Operation Date: 08/01/20 10:10 Actual Procedures p Laser Lithotripsy with Stone Extraction, Lancing of Ingrown Labial Hair - Adrian Ley MD s Cystoscopy, Left Retrograde Pyelogram, Left Ureteroscopy, (Left) - Adrian Ley MD s Insertion Left Ureteral Stent(Left) - Adrian Ley MD Ordered Studies 07/31/20 21:55 CT abd pelvis wo con Urgent 08/01/20 11:00 FL retrograde includes kub Routine Hospital Course (1) Ureterolithiasis: 55 yo F PMHx depression with CC left flank pain with associated nausea and vomiting, admitted for obstructive L renal calculus. Obstructive L renal calculus with hematuria and flank pain: - On admission with left flank pain and associated nausea and vomiting. Noted in ED to be febrile with UA with some epi - Noted on imaging to have 5x9mm L distal ureteral stone with obstructive changes. - Urology consult placed: today had stent placement as well as lithotripsy for stone removal. - Patient tolerated procedure well, able to ambulate without much pain, and able to tolerate normal diet without nausea or vomiting. - Received ceftriaxone while admitted; transitioned to cefdinir 300mg BID on discharge to complete on 08/11. - Will have Urology follow up in 1-2 weeks, will be contacted by Urology office with regard to stent removal. - May take NSAIDs/Tylenol PO prn pain. - Prescribed tamsulosin daily this admission, to continue until stent removal. Depression: - No interventions made this admission. - Continue home medications. (2) Hematuria: (3) Left flank pain: (4) Depression: Total Time Total Time Spent Total Time Spent (In Minutes): <30 Discharge Plan Discharge Items Patient Disposition: Home - Self-Care Reason For Visit: OBSTRUCTIVE KIDNEY STONE Discharge Diagnosis: obstructive kidney stone Activity: Per Instructions section Non-emergency contact: Primary Care Provider and Urologist Call non-emergency contact if: you have any medication questions, your symptoms worsen and your temperature is above 101 Follow-up/Referrals: Adrian Ley MD [Physician] - (Will be contacted by Urology office) Giuliana Costa MD [Primary Care Provider] - Diet: Regular Addtl Attending Provider Instructions: You were admitted to the hospital for an obstructive kidney stone on the left side, and Urology saw you this morning. You were given fluids and pain medicines. The Urology team was able to successfully remove the stone in pieces and place a ureteral stent. After tolerating lunch well and controlling your pain, you were felt to be safe for discharge home with the following recommendations: 1) You will take a medication called tamsulosin or Flomax, a once daily medication that helps dilate the tube the urine passes through. You will continue this until you see Urology. 2) You will start a medication called cefdinir, both for your cyst infection and for any potential kidney bacteria due to your obstructing stone. You will take this medication one pill every 12 hours for 10 more days. This means you will no longer take your Keflex (also called cephalexin) that you were given by the [employer] Officer. Both of these medications were sent to the [facility] in [place]. 3) You will have follow up with Urology in 1-2 weeks. You will be contacted by the Urology office to schedule an appointment. You will keep the stent in place at least until you follow up with Urology. 4) You should also follow up with your primary care doctor (Dr. Costa) within 1-2 weeks of discharge. 5) You can take tylenol or ibuprofen as needed for your pain. Please read the bottle to determine appropriate dosing. If you have worsening of your pain, chest pain, shortness of breath, fevers over 100.4 degrees, please seek out urgent medical attention. Pending Studies at Discharge: No Stand-Alone Forms: My [facility] [employer] Work/School Release (Inpt), Smoking Cessation Medications and DC Order Prescriptions: New tamsulosin 0.4 mg Capsule 0.4 mg PO QAM 21 Days Qty: 21 RF: 0 cefdinir 300 mg capsule 300 mg PO BID 10 Days Qty: 20 RF: 0 Continued multivitamin Tablet 1 tab PO DAILY RF: 0 buspirone 10 mg tablet 10 mg PO QAM RF: 0 cholecalciferol (vitamin D3) [Vitamin D3] 25 mcg (1,000 unit) Capsule 1,000 unit PO DAILY RF: 0 albuterol sulfate 90 mcg/actuation HFA aerosol inhaler 2 puff INHALATION QID PRN (Reason: Wheezing) RF: 0 bupropion HCl 150 mg tablet extended release 24 hr 150 mg PO Q24H RF: 0 Discontinued cephalexin [Keflex] 250 mg capsule 250 mg PO QID 7 Days Qty: 28 RF: 0 Discharge Orders: Discharge Order (Routine); Ordered 08/01/20 Ordered By: Ally Espinosa/Other Patient Handouts: Anatomy of the Female Urinary Tract, Healthy Kidneys, Understanding Kidney Stones, Preventing Kidney Stones, Understanding Hydronephrosis Admission Data Admit Date/Time: 08/01/20 01:30 Attending Provider: Roe Drake Admit Provider: Ruma Bowen Primary Care Provider: Giuliana Costa Other Providers: Shawn Guevara ; Adrian Ley Other Interventions: Discharge Summary Assessment (RN) Last Done: 08/01/20 15:12 Supervising Physician Co-Signing Physician Notes I personally examined the patient and verified all weaver points of history and exam, discussed case, and agree with decision making with Dr Chery. feeling better post op and would like to go home. vitals noted nad heent nc at mmm breathing unlabored no accessory muscles good effort skin no rashes no pallor or icterus ureterolithiasis/pain/possible infection - now post stenting - stable for dis charge. PO abx. outpt f/u otherwise as above Resident Activity Tracking Resident Involvement: Resident Care Provided Care Provided: Adult Hospital Medicine
--- NOTE | 2020-08-01 18:00 | Billing Data ---
Date of Service August 01, 2020 Coding Level of Care Code D/C Day Management <30 mins
--- NOTE | 2020-08-02 00:23 | Electrocardiogram Report ---
Test Reason : Blood Pressure : / mmHG Vent. Rate : 077 BPM Atrial Rate : 077 BPM P-R Int : 152 ms QRS Dur : 084 ms QT Int : 366 ms P-R-T Axes : 064 062 062 degrees QTc Int : 414 ms Normal sinus rhythm Normal ECG When compared with ECG of 07-APR-2005 14:47, No significant change was found Confirmed by Den Oden ([id number]) on 08/02/2020 12:22:50 AM Referred By: REFERRED SELF Confirmed By:Den Oden
--- NOTE | 2020-08-02 01:03 | Billing Data ---
Date of Service August 02, 2020 Coding Level of Care Code 59778 Initial Inpt Care Lvl 2
[2020-08-02] MEDS ORDERED: CHOLECALCIFEROL 1,000 UNITS 25 MCG TAB PO SCH (09:00)
[2020-08-02] MEDS ORDERED: MULTIVITAMIN TAB PO SCH (09:00)
[2020-08-06 01:37] LABS: Component 2 DNR; Source LEFT URETERAL STONE
== END 2020-08-01 15:53 | disposition home or self-care (01) | DRG 661 ==
LOC: ED 21:26 → SUATTDRO 08-01 01:30 → 3N 08-01 01:30